=== PATIENT | male | born 1925 | race Caucasian/White ===

== ENCOUNTER 2016-04-22 09:54 | Day surgery (SDC) | payer MEDICARE ==
--- NOTE | 2016-04-22 07:45 | HP ---
DATE OF SURGERY: 04/22/2016 HISTORY OF PRESENT ILLNESS: The patient is a 89 year-old with nonhealing lesion left ear in need of excision and also very dark colored nonhealing lesion right back that bleeds intermittently nonhealing in need of excision as well. PAST MEDICAL HISTORY: Diabetes, hypertension, hyperlipidemia. PAST SURGICAL HISTORY: Cholecystectomy, appendectomy, foot surgery. Hernia repair x2 in the past. MEDICATIONS: Amlodipine, gabapentin, Imodium AD, Januvia, Metformin, metoprolol, Probiotic. ALLERGIES: NKDA. FAMILY HISTORY: Heart disease. SOCIAL HISTORY: No smoking or alcohol abuse. REVIEW OF SYSTEMS: Ten systems reviewed pertinent for as noted above. Denies current chest pain or palpitations. Significant for neuropathic pain and some sciatica in the past. As noted above and per admission assessment and physical exam. PHYSICAL EXAMINATION: GENERAL: No acute distress. HEENT: Sclerae nonicteric. On the ear there is a nonhealing lesion on the left ear. NECK: No JVD. CHEST: Equal excursion, nonlabored breathing. Clear to auscultation. No wheezing currently. BACK: There is a dark nonhealing lesion with intermittent bleeding of unclear etiology in need of excision. CVS: Regular rate and rhythm. ABDOMEN: Soft, nondistended. EXTREMITIES: No significant edema. NEURO: Alert, moving extremities grossly symmetrically. IMPRESSION: Nonhealing lesion left ear in need of excision possible wedge resection depending on operative findings. Excisional biopsy nonhealing intermittent bleeding lesion right back. General risk of bleeding or infection, risk of nonhealing of the wound or dehiscence possibly requiring packing, general risk of deep venous thrombosis, pulmonary embolism, pneumonia, risk of cardiopulmonary event given his comorbidity, should the lesion be malignancy possible need for wider excision or other treatment. He understands and agrees to the planned procedure will proceed with excisional biopsy of left ear nonhealing lesion, possible wedge resection or flap or skin graft depending on operative findings, as well as excisional biopsy nonhealing back lesion.
[~2016-04-22 09:54] MED LIST: DIPRIVAN 200 MG/20 ML IV ONE; Lactated Ringers 1,000 ML IV ONE; ROBINUL IV ONE; SUBLIMAZE 100 MCG/2 ML IV ONE; Sensorcaine 0.25% 10 ML ONE; TORAdol 30 mg Injection IV ONE; Zofran 4 MG/2 ML VIAL IV ONE
[2016-04-22] MEDS ORDERED: Pepcid 20 MG VIAL IV ONE (10:04)
[2016-04-22] MEDS ORDERED: CEFAZOLIN 2 GM-D5W BAG** 50 ML IV ONE (10:04)
[2016-04-22] MEDS ORDERED: BICITRA 30 ML CUP PO ONE (10:04)
[2016-04-22] MEDS ORDERED: Lactated Ringers 1,000 ML IV SCH (10:30)
--- NOTE | 2016-04-22 13:02 | OP ---
SURGERY DATE/TIME: 04/22/2016 1107 PREOPERATIVE DIAGNOSIS: Nonhealing lesion ear, chest and back. POSTOPERATIVE DIAGNOSIS: Nonhealing lesion ear, chest and back. PROCEDURES: 1) Excisional biopsy of 1.5 cm nonhealing left ear lesion with excisional wedge resection of 1.5 cm nonhealing ear lesion with reconstruction with auriculoplasty. 2) Excisional biopsy of 2 cm chest nodule or cyst. 3) Excisional biopsy of back cyst or nodule approximately 1.5 cm. SURGEON: Dr. Kirk Steiner. ANESTHESIA: General. ESTIMATED BLOOD LOSS: Minimal. INDICATIONS: As noted above. Risks and benefits explained in detail and not limited to and consent obtained. DESCRIPTION OF PROCEDURE AND FINDINGS: The patient was taken to the operating room. General anesthesia was induced. Chest and ear are prepped and draped in usual sterile fashion. After official time out and no disagreement with planned procedure, starting first at the ear. Given the ulcerated nature of this area there was concern for carcinoma. It was felt the best option would be wedge resection with auriculoplasty. Therefore marking out around normal appearing skin on either side of this dissection is carried down through the skin down through the a segment of cartilage, removed and passed off. The lesion itself measured about 1.5 cm with margins. At this point ear reconstruction was then accomplished with interrupted 4-0 Vicryl for reconstruction of cartilage. The skin then closed with auriculoplasty fashion with combination of 5-0 and 6-0 running in interrupted vertical mattress fashion. Adequate hemostasis appeared to be noted. Sterile dressing applied at the end of the procedure. The patient tolerated this part of the procedure well. Gloves and instruments were changed. Attention was then turned to the nonhealing chest lesion that had been confirmed with the patient preoperatively and marked. Marking out to normal appearing skin on either side of it. Dissection carried down and circumferentially what appeared whether a cyst or other type of nodule dissecting out around and deep to normal appearing subcutaneous tissue. The specimen is passed off and this measured about 2 cm in size. Hemostasis controlled with brief bursts of cautery. Good hemostasis noted. The wound is then closed intermediate fashion in layers with interrupted 3-0 Vicryl closing the deep and superficial subcu. Skin closed with 4-0 Vicryl. Steri-Strips and sterile dressing applied. The patient tolerated the procedure well. There were no immediate complications. Attention is then turned to the back lesion. He has been repositioned in the lateral position. Appropriate padding per anesthesia and OR staff. Back is prepped and draped in usual sterile fashion. After time out and no disagreement with planned procedure, marking out in spindle-shaped transverse fashion out to normal appearing skin around this area. Dissection carried deep to it. Whether this is a simple inclusion cyst, nodule or lesion was unclear but dissecting out to normal appearing subcutaneous tissue deep from this. The specimen is passed off and measured about 1.5 cm with margins and then closed in intermediate fashion in layers with interrupted 3-0 Vicryl closing the deep and superficial subcu. Skin closed with 4-0 Vicryl, interrupted 3-0 Prolene used to reinforce the skin externally and given the location on the back. Steri-Strips and sterile dressing applied. 0.25% Marcaine local injected along the wound. The patient tolerated the procedure well. There were no immediate complications.
[2016-04-22 13:56] VITALS: BP 107/44; PULSE 54; O2SAT 95
== END 2016-04-22 14:20 | disposition home or self-care (01) ==
LOC: SDC 09:54
PROVIDERS: ATTEND Surgery
PROC: 09B Ear, Nose, Sinus, Excision (ICD-10-PCS; principal; 2016-04-22)
PROC: 0HB5XZX Excision of Chest Skin, External Approach, Diagnostic (ICD-10-PCS; 2016-04-22)
PROC: 0HB6XZX Excision of Back Skin, External Approach, Diagnostic (ICD-10-PCS; 2016-04-22)
DX: L99 Other disorders of skin and subcutaneous tissue in diseases classified elsewhere (principal); L72.8 Other follicular cysts of the skin and subcutaneous tissue; E11.9 Type 2 diabetes mellitus without complications; Z79.4 Long term (current) use of insulin; I10 Essential (primary) hypertension; E78.5 Hyperlipidemia, unspecified; Z79.899 Other long term (current) drug therapy
CPT/HCPCS: 00120; 00400; 36415; 82962; 99100; J0690

== ENCOUNTER 2016-04-24 18:57 | Emergency (ER) | payer MEDICARE ==
--- NOTE | 2016-04-24 19:31 | ERPHSYRPT ---
- History of Present Illness Time Seen by Provider: 04/24/16 19:20 Historian: patient Exam Limitations: clinical condition Patient Subjective Stated Complaint: urinary retention Triage Nursing Assessment: states hastyesha had a bm since friday and states he hasnt urinated all day. states he ahs a lot of roman pressure and unable to pee. abd distended and firm. Physician History: PATIENT WITH HISTORY OR TYPE 2 DIABETES, HYPERTENSION COMPLAINS OF NO BOWEL MOVEMENT X 3 DAYS AND INABILITY TO URINATE SINCE 8AM TODAY. DENIES EMESIS, DIARRHEA, FEVER. PATIENT HAS FREQUENCY OF URINATION, SMALL AMOUNTS, STRAINING ON OCCASION. DENIES FLANK PAIN. Timing/Duration: today Quality: throbbing Abdominal Pain Onset Location: suprapubic Pain Radiation: no radiation Severity of Pain-Max: moderate Severity of Pain-Current: moderate Modifying Factors: Improves With: other (UNABLE TO URINATE) Previous symptoms: no prior history Allergies/Adverse Reactions: No Known Drug Allergies Allergy (Verified 04/24/16 19:18) Home Medications: Gabapentin 300 mg [Neurontin 300 mg] 400 mg PO BID 03/15/13 [History] Metformin HCl 850 mg [Glucophage 850 MG] 500 mg PO BID 03/15/13 [History] Amlodipine Besylate 5 mg [Norvasc 5 mg] 5 mg PO DAILY 04/19/16 [History] Metoprolol Succinate [Toprol Xl] 100 mg PO DAILY 04/19/16 [History] Sitagliptin Phosphate 50 MG [Januvia 50 MG] 50 mg PO DAILY 04/19/16 [ History] Valsartan/Hydrochlorothiazide [Valsartan-Hctz 160-12.5 mg Tab] 1 each PO DAILY 04/24/16 [History] Hx Tetanus, Diphtheria Vaccination/Date Given: Yes Hx Influenza Vaccination/Date Given: Yes Hx Pneumococcal Vaccination/Date Given: No Immunizations Up to Date: Yes - Review of Systems Constitutional: No Fever, No Chills Eyes: No Symptoms Ears, Nose, & Throat: No Symptoms Respiratory: No Symptoms, No Cough, No Dyspnea Cardiac: No Symptoms, No Chest Pain, No Edema, No Syncope Abdominal/Gastrointestinal: No Abdominal Pain, No Nausea, No Vomiting, No Diarrhea Genitourinary Symptoms: Hesitancy, Urinary Retention, No Dysuria Musculoskeletal: No Back Pain, No Neck Pain Skin: No Rash Neurological: No Symptoms, No Dizziness, No Focal Weakness, No Sensory Changes Psychological: No Symptoms Endocrine: No Symptoms All Other Systems: Reviewed and Negative - Past Medical History Pertinent Past Medical History: Yes Neurological History: Peripheral Neuropathy ENT History: No Pertinent History Cardiac History: Hypertension Respiratory History: No Pertinent History Endocrine Medical History: Diabetes Type II Musculoskeletal History: Arthritis GI Medical History: No Pertinent History, Diverticulitis, Hernia History: No Pertinent History Psycho-Social History: No Pertinent History Male Reproductive Disorders: No Pertinent History - Past Surgical History Past Surgical History: Yes Neuro Surgical History: No Pertinent History Cardiac: No Pertinent History Respiratory: No Pertinent History Gastrointestinal: Appendectomy, Cholecystectomy Genitourinary: No Pertinent History Musculoskeletal: Other Male Surgical History: No Pertinent History Other Surgical History: left foot surgery- removed small mass. Colonoscopy. EX /BX CYST ON CHEST - Social History Smoking Status: Never smoker Exposure to second hand smoke: No Drug Use: none Patient Lives Alone: No - Nursing Vital Signs Nursing Vital Signs: Initial Vital Signs Temperature 98.0 F Temperature Source Oral Pulse Rate 68 Respiratory Rate 16 Blood Pressure [] 141/62 Pain Intensity 9 - Physical Exam General Appearance: mild distress, alert Eye Exam: PERRL/EOMI, eyes nml inspection Ears, Nose, Throat Exam: normal ENT inspection, pharynx normal, moist mucous membranes Neck Exam: normal inspection, non-tender, supple, full range of motion Respiratory Exam: normal breath sounds, lungs clear, No respiratory distress Cardiovascular Exam: regular rate/rhythm, normal heart sounds Gastrointestinal/Abdomen Exam: soft, normal bowel sounds, tenderness, distention (DISTENTION TO LEVEL OF UMBLICUS), No mass Back Exam: normal inspection, normal range of motion, No CVA tenderness, No vertebral tenderness Extremity Exam: normal inspection, normal range of motion, pelvis stable Neurologic Exam: alert, oriented x 3, cooperative, normal mood/affect, nml cerebellar function, sensation nml, No motor deficits Skin Exam: normal color, warm, dry SpO2: 95 Oxygen Delivery: Room Air - Radiology Exams Abdomen X-ray Interpretation: Interpreted by me (NO BOWEL OBSTRUCTION, FREE AIR) Ordered Tests: Active Orders 24 hr Category Date Time Status Catheter-[place] STAT Care 04/24/16 19:28 Active Enema STAT Care 04/24/16 20:35 Inactive OBSTR/ACUTE ABDOMEN SERIES Stat Exams 04/24/16 19:29 Taken BMP Stat Lab 04/24/16 19:40 Completed CBC W DIFF Stat Lab 04/24/16 19:40 Completed UA W/ MICROSCOPIC Stat Lab 04/24/16 19:50 Completed Lab/Rad Data: Laboratory Result Diagrams 04/24/16 19:40 04/24/16 19:40 Laboratory Results 04/24/16 04/24/16 04/24/16 Range/Units 19:50 19:40 19:40 WBC 9.3 (4.0-10.5) K/mm3 RBC 5.00 (4.1-5.6) M/mm3 Hgb 14.1 (12.5-18.0) gm/dl Hct 42.1 (42-50) % MCV 84.2 (78-100) fl MCH 28.2 (26-32) pg MCHC 33.5 (32-36) g/dl RDW 15.0 H (11.5-14.0) % Plt Count 167 (150-450) K/mm3 MPV 10.4 H (6-9.5) fl Gran % 79.9 H (36.0-66.0) % Lymphocytes % 8.5 L (24.0-44.0) % Monocytes % 9.6 (0.0-12.0) % Eosinophils % 1.9 (0.00-5.0) % Basophils % 0.1 (0.0-0.4) % Basophils # 0.01 (0-0.4) Sodium 139 (136-145) mEq/L Potassium 3.7 (3.5-5.1) mEq/L Chloride 102 (98-107) mEq/L Carbon Dioxide 27.5 (21-32) mEq/L Anion Gap 13.6 (5-15) MEQ/L BUN 22 H (9-20) mg/dL Creatinine 1.37 H (0.55-1.30) mg/dl Estimated GFR 52 ML/MIN Glucose 146 H (70-110) MG/DL Calcium 8.5 (8.5-10.1) mg/dL Ur Collection Type CLEAN CATCH Urine Color YELLOW (YELLOW) Urine Appearance CLEAR (CLEAR) Urine pH 7.0 (5-6) Ur Specific [place] 1.020 (1.005-1.025) Urine Protein TRACE (Negative) Urine Glucose (UA) NEGATIVE (NEGATIVE) mg/dL Urine Ketones NEGATIVE (NEGATIVE) Urine Nitrite NEGATIVE (NEGATIVE) Urine Bilirubin NEGATIVE (NEGATIVE) Urine Urobilinogen 0.2 (0-1) mg/dL Urine WBC (Auto) NEGATIVE (NEGATIVE) Urine RBC (Auto) TRACE-INTACT (0-5) Demetrio/ul Urine Microscopic RBC 0-2 (0-2) /HPF Urine Microscopic WBC 0-2 (0-5) /HPF Ur Epithelial Cells FEW (FEW) /HPF Urine Bacteria FEW (NEGATIVE) /HPF Specimen Received 04/24/16 1950 - Progress Progress: improved Progress Note: 04/24/16 21:38 DELGADO CATHETER INSERTION WITH 1500ML URINE OUTPUT, PATIENT HAD BM WHLE IN EMERGENCY Counseled pt/family regarding: lab results, diagnosis, need for follow-up, rad results - Departure Time of Disposition: 23:15 Departure Disposition: Home Clinical Impression: ACUTE URINARY RETENTION, CONSTIPATION Condition: Stable Critical Care Time: No Referrals: CRISTOBAL CANTOR [Primary Care Provider] - Additional Instructions: CONTINUE STOOL SOFTNER DIRECTED. MAINTAIN DELGADO WITH LEG BAG. FOLLOWUP WITH YOUR FAMILY FOR REFERRAL TO UROLOGIST. HAVE DELGADO CATHETER REMOVED AT 3 DAYS.
[2016-04-24 19:52] LABS: BASOPHIL % 0.1 % (0.0-0.4); Eosinophil % 1.9 % (0.00-5.0); Granulocytes % 79.9 % (36.0-66.0); Lymphocytes % 8.5 % (24.0-44.0); Mean Cell Volume 84.2 fl (78-100); Mean Corpuscular Hemoglobin 28.2 pg (26-32); Mean Platelet Volume 10.4 fl (6-9.5); Monocytes % 9.6 % (0.0-12.0); Platelet Count 167 K/mm3 (150-450); White Blood Count 9.3 K/mm3 (4.0-10.5)
[2016-04-24 20:05] LABS: ANION GAP 13.6 MEQ/L (5-15); Carbon Dioxide 27.5 mEq/L (21-32); Potassium 3.7 mEq/L (3.5-5.1)
[2016-04-24 20:25] LABS: Bacteria FEW /HPF (NEGATIVE); Collection Type CLEAN CATCH; Epithelial Cells FEW /HPF (FEW); WBC 0-2 /HPF (0-5)
[2016-04-24 22:51] VITALS: BP 141/62; PULSE 68
[2016-04-24 23:11] VITALS: O2SAT 95
--- NOTE | 2016-04-25 09:12 | XRAY ---
Indication: Abdominal pain, constipation, and urinary retention. Comparison: December 19, 2010 2 views of the abdomen demonstrates stomach and bowel synchronous fluid leveling, ileus versus gastroenteritis. No focal bowel dilatation, obstruction, or free air. Again cholecystectomy clips. Solid organs unremarkable. Osseous structures intact again with osteopenia and degenerative changes. Single AP chest remains hyperinflated and clear. The heart is not enlarged. Vascularity normal. Bony thorax intact again with osteopenia and degenerative changes. Impression: 1. Stomach and bowel synchronous fluid leveling. Rule out ileus versus gastroenteritis. CT may yield further information if there remains further clinical concern. 2. Stable nonacute hyperinflated one view chest.
== END 2016-04-24 23:10 | disposition home or self-care (01) ==
LOC: ED 18:57
DX: R33.9 Retention of urine, unspecified (principal); K59.00 Constipation, unspecified
CPT/HCPCS: 36415; 51702; 74022; 80048; 81000; 85025; 99283